=== PATIENT | female | born 1975 | race African-American/Black ===

== ENCOUNTER 2016-08-05 11:45 | Emergency (ER) | payer MEDICAID ==
[~2016-08-05] VITALS: Ht 167.6 cm; Wt 129.3 kg
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
[2016-08-05] MEDS ORDERED: HYDROCODONE/APAP 10/325MG 1 EA TABLET ONE (12:24)
[2016-08-05] MEDS ORDERED: IBUPROFEN 600 MG TABLET PO ONE ×2 (12:25→12:30)
[2016-08-05] MEDS ORDERED: HYDROCODONE/APAP 10/325MG 1 EA TABLET PO ONE (12:30)
[2016-08-05 13:59] VITALS: BP 118/78
== END 2016-08-05 13:59 | disposition home or self-care (01) ==
LOC: ER 11:50
DX: S60.212A Contusion of left wrist, initial encounter (principal); M54.9 Dorsalgia, unspecified; E66.01 Morbid (severe) obesity due to excess calories; Z88.5 Allergy status to narcotic agent; V49.50XA Passenger injured in collision with unspecified motor vehicles in traffic accident, initial encounter; Y93.89 Activity, other specified; Y92.413 State road as the place of occurrence of the external cause; Y99.8 Other external cause status
CPT/HCPCS: 73100-TC; 73130-TC; A4606; Z7610